=== PATIENT | male | born 1955 | race Two or more races ===

== ENCOUNTER → 2016-09-16 | Outpatient (REF) | payer MEDICARE, MEDICAID ==
[~2016-09-16] MED LIST: /WARF25TA PO; ADUL81TA2 PO; ATEN50TA2 PO; BABY81CH PO; CALC600T7 PO; COUM2.5T11 PO; FISH1000 PO; FISH100049 PO; FLEETOIL PR; MILKSUS PO; MIRA3350 PO; MOM30SS PO; MULTTAB4 PO; NYSTCRE3 TOP; OSTETAB3 PO; PERCOCET PO; SENO8.6T2 PO; TAMS0.4C2 PO; TYLE167L PO; TYLE325T5 PO; ZOFR4SOL PO
== END ==
LOC: M SMT 16:46
PROVIDERS: ATTEND Nurse Practitioner Women's Health
DX: R32 Unspecified urinary incontinence (principal)
CPT/HCPCS: 51798; 81001; 87086; G0463

== ENCOUNTER 2017-04-19 13:20 | Emergency (ER) | payer MEDICARE, MEDICAID ==
[~2017-04-19] VITALS: Ht 180.3 cm; Wt 121.4 kg
[~2017-04-19 13:20] MED LIST changes: -COUM2.5T11 PO; +COUM2.5T17 PO; -SENO8.6T2 PO; +SENO8.6T5 PO
[2017-04-19] MEDS ORDERED: ACET1TAB17 PO (13:51)
[2017-04-19] MEDS ORDERED: LORA10CA PO (13:51)
[2017-04-19] MEDS ORDERED: FLUT1LOT EX (13:51)
[2017-04-19] MEDS ORDERED: NABU500T PO (13:51)
[2017-04-19] MEDS ORDERED: OMEG100011 PO (13:51)
[2017-04-19] MEDS ORDERED: NYSTOI TOP (13:51)
[2017-04-19] MEDS ORDERED: CYCL10TA PO (13:51)
[2017-04-19] MEDS ORDERED: FLOM5CAP PO (13:51)
[2017-04-19] MEDS ORDERED: PRAM0.5T4 PO (13:51)
[2017-04-19] MEDS ORDERED: ASPI1TAB PO (13:51)
[2017-04-19] MEDS ORDERED: FINA5TAB2 PO (13:51)
[2017-04-19] MEDS ORDERED: OSTETAB4 PO (13:51)
[2017-04-19 14:57] LABS: BASO % 0.4 % (0.0-1.0); EOS # 0.1 10^3/uL (0.0-0.50); EOS % 1.2 % (0.0-3.0); IMMATURE GRANULOCYTE % 0.4 % (0-0); LYMPH # 1.6 10^3/uL (1.5-4.5); LYMPH % 15.3 % (24.0-44.0); MEAN CORPUSCULAR HEMOGLOBIN 30.4 pg (27.0-33.0); MEAN CORPUSCULAR HGB CONC 35.3 g/dl (32.0-36.5); MONO # 0.8 10^3/uL (0.0-0.8); MONO % 7.1 % (0.0-5.0); NEUTROPHILS % 75.6 % (36.0-66.0); PLATELET COUNT, AUTOMATED 249 10^3/uL (150-450); RED CELL DISTRIBUTION WIDTH 12.9 % (11.5-14.5); WHITE BLOOD COUNT 10.6 10^3/uL (4.0-10.0)
[2017-04-19 15:06] LABS: MICROSCOPIC INDICATED? MAN YES (NO)
[2017-04-19 15:08] LABS: INR 1.07
[2017-04-19 15:10] LABS: BACTERIA, URINE SMALL AMOUNT; RBC, URINE TNTC /hpf (0-3)
[2017-04-19 15:14] LABS: HYALINE CAST, URINE NONE SEEN /lpf (0-1); MICROSCOPIC EXAM PERFORMED; SQUAMOUS EPITHELIAL CELL URINE NONE SEEN /hpf (SMALL AMT)
[2017-04-19 15:30] LABS: ANION GAP 7 MEQ/L (8-16); BLOOD UREA NITROGEN 12 MG/DL (7-18); CALCIUM LEVEL 9.4 MG/DL (8.8-10.2); CARBON DIOXIDE LEVEL 28 MEQ/L (21-32); CHLORIDE LEVEL 103 MEQ/L (98-107); CREATININE FOR GFR 0.65 MG/DL (0.70-1.30); GLOMERULAR FILTRATION RATE > 60.0 (>49); GLUCOSE, FASTING 112 MG/DL (80-110); POTASSIUM SERUM 3.8 MEQ/L (3.5-5.1); SODIUM LEVEL 138 MEQ/L (136-145)
[2017-04-19] MEDS ORDERED: ISOVUE-370 76% 100ML VIAL (Q9967) As Ordered ONE (16:11)
[2017-04-19 18:11] VITALS: BP 123/78
--- NOTE | 2017-04-20 06:35 | REP ---
CT ABDOMEN AND PELVIS WITH CONTRAST: HISTORY: Bladder perforation. A 6.2 cm cyst is present in the left kidney. The liver, gallbladder, pancreas, spleen, adrenal glands and right kidney are normal in appearance. There is no mass, adenopathy or free fluid. The visualized lungs are clear. A Maki catheter is present in the urinary bladder. A small amount of contrast material is present in the urinary bladder and ureters. There is no free fluid or contrast material in the pelvis. The prostate gland is enlarged. Diverticula are present in the descending and sigmoid colon. Degenerative change is present in the spine. IMPRESSION: 1. 5.6 cm left renal cyst. 2. Diverticulosis. Signed by Sanjeev Ling MD 04/20/2017 08:26 A
== END 2017-04-19 18:14 | disposition home or self-care (01) ==
LOC: M ED 13:20
DX: R31.0 Gross hematuria (principal); I10 Essential (primary) hypertension; N40.0 Benign prostatic hyperplasia without lower urinary tract symptoms; Z87.891 Personal history of nicotine dependence; G47.30 Sleep apnea, unspecified; F41.9 Anxiety disorder, unspecified; M79.9 Soft tissue disorder, unspecified; N28.1 Cyst of kidney, acquired; K57.90 Diverticulosis of intestine, part unspecified, without perforation or abscess without bleeding; Z79.82 Long term (current) use of aspirin; Z79.899 Other long term (current) drug therapy
CPT/HCPCS: 74177; 80048; 81000; 85025; 85610; 85730; 99284; Q9967

== ENCOUNTER → 2017-05-15 | Outpatient (REF) | payer MEDICARE, MEDICAID | LOC: M SMT 11:57 | DX: N40.1 Benign prostatic hyperplasia with lower urinary tract symptoms (principal) | CPT/HCPCS: 81001 ==

== ENCOUNTER → 2018-06-18 | Outpatient (REF) | payer MEDICARE, MEDICAID ==
[~2018-06-18] MED LIST changes: +ACET1TAB55 PO; +ASPI1TAB PO; +CYCL10TA PO; +FINA5TAB2 PO; +FLOM0.4C39 PO; +FLUT1LOT EX; +LORA10CA PO; +MILK120011 PO; -MILKSUS PO; +NABU-126 PO; +NYSTOI TOP; +OMEG100011 PO; +OSTETAB4 PO; +PRAM0.5T7 PO
[2018-06-18 13:20] LABS: APPEARANCE, URINE CLEAR (CLEAR); BACTERIA, URINE AUTO NEGATIVE (NEGATIVE); BILIRUBIN, URINE AUTO NEGATIVE (NEGATIVE); BLOOD, URINE BLOOD NEGATIVE (NEGATIVE); COLOR, URINE YELLOW (YELLOW); GLUCOSE, URINE (UA) AUTO NEGATIVE (NEGATIVE); KETONE, URINE AUTO NEGATIVE (NEGATIVE); LEUKOCYTE ESTERASE, URINE AUTO NEGATIVE (NEGATIVE); NITRITE, URINE AUTO NEGATIVE (NEGATIVE); PROTEIN, URINE AUTO NEGATIVE (NEGATIVE); RBC, URINE AUTO 0 /HPF (0-3); SPECIFIC GRAVITY URINE AUTO 1.006 (1.002-1.035); SQUAMOUS EPITHELIAL CELL UR AU 0 /HPF (0-6); UROBILINOGEN, URINE AUTO 0.2 mg/dL (0.0-2.0); WBC, URINE AUTO 0 /HPF (0-3)
== END ==
LOC: M SMT 13:08
PROVIDERS: ATTEND Nurse Practitioner Women's Health
DX: N40.1 Benign prostatic hyperplasia with lower urinary tract symptoms (principal)
CPT/HCPCS: 51798; 81001; 87086; G0463

== ENCOUNTER → 2018-09-15 | Outpatient (REF) | payer MEDICARE, MEDICAID ==
[~2018-09-15] MED LIST changes: -/WARF25TA PO; -ASPI1TAB PO; +ASPI81TA26 PO; +COUM1TAB18 PO; +OXYC1TAB23 PO
[2018-09-15 19:20] LABS: APPEARANCE, URINE CLEAR (CLEAR); BACTERIA, URINE AUTO NEGATIVE (NEGATIVE); BILIRUBIN, URINE AUTO NEGATIVE (NEGATIVE); BLOOD, URINE BLOOD NEGATIVE (NEGATIVE); COLOR, URINE STRAW (YELLOW); GLUCOSE, URINE (UA) AUTO NEGATIVE (NEGATIVE); KETONE, URINE AUTO NEGATIVE (NEGATIVE); LEUKOCYTE ESTERASE, URINE AUTO NEGATIVE (NEGATIVE); NITRITE, URINE AUTO NEGATIVE (NEGATIVE); PROTEIN, URINE AUTO NEGATIVE (NEGATIVE); RBC, URINE AUTO 0 /HPF (0-3); SPECIFIC GRAVITY URINE AUTO 1.005 (1.002-1.035); SQUAMOUS EPITHELIAL CELL UR AU 0 /HPF (0-6); UROBILINOGEN, URINE AUTO 0.2 mg/dL (0.0-2.0); WBC, URINE AUTO 0 /HPF (0-3)
== END ==
LOC: M SMT 17:06
PROVIDERS: ATTEND Nurse Practitioner Women's Health
DX: N40.1 Benign prostatic hyperplasia with lower urinary tract symptoms (principal)
CPT/HCPCS: 51798; 81001; 87086; G0463

== ENCOUNTER → 2019-02-11 | Outpatient (REF) | payer MEDICARE, MEDICAID ==
[~2019-02-11] MED LIST changes: +FLON1SPR; +LISI10TA4 PO; +LORA-436 PO; +MIRA0.5T PO; +MULTCAP PO; +VITA50TA7 PO
== END ==
LOC: M SMT 16:40
PROVIDERS: ATTEND Nurse Practitioner Women's Health
DX: Z01.812 Encounter for preprocedural laboratory examination (principal); N40.1 Benign prostatic hyperplasia with lower urinary tract symptoms; N13.8 Other obstructive and reflux uropathy
CPT/HCPCS: 51798; 87086; G0463

== ENCOUNTER → 2019-05-05 | Outpatient (REF) | payer MEDICARE, MEDICAID ==
[2019-05-05 13:43] LABS: APPEARANCE, URINE HAZY (CLEAR); BACTERIA, URINE AUTO 1+ (NEGATIVE); BILIRUBIN, URINE AUTO NEGATIVE (NEGATIVE); BLOOD, URINE BLOOD 3+ (NEGATIVE); COLOR, URINE YELLOW (YELLOW); GLUCOSE, URINE (UA) AUTO NEGATIVE (NEGATIVE); KETONE, URINE AUTO NEGATIVE (NEGATIVE); LEUKOCYTE ESTERASE, URINE AUTO 2+ (NEGATIVE); MUCUS, URINE SMALL (NEGATIVE); NITRITE, URINE AUTO NEGATIVE (NEGATIVE); PROTEIN, URINE AUTO 1+ mg/dL (NEGATIVE); RBC, URINE AUTO 96 /HPF (0-3); SPECIFIC GRAVITY URINE AUTO 1.019 (1.002-1.035); SQUAMOUS EPITHELIAL CELL UR AU 0 /HPF (0-6); UROBILINOGEN, URINE AUTO 0.2 mg/dL (0.0-2.0); WBC, URINE AUTO 74 /HPF (0-3)
== END ==
LOC: M SMT 13:13
PROVIDERS: ATTEND Nurse Practitioner Women's Health
DX: N40.1 Benign prostatic hyperplasia with lower urinary tract symptoms (principal)